=== PATIENT | male | born 1990 | race Caucasian/White ===

== ENCOUNTER 2016-05-08 22:23 | Emergency (ER) | payer SELFPAY ==
[~2016-05-08] VITALS: Ht 177.8 cm; Wt 86.2 kg
[2016-05-08 22:32] VITALS: BP 130/80
--- NOTE | 2016-05-08 23:14 | Emergency Room Report ---
History of Present Illness General Chief Complaint: Behavioral Complaint Source: Patient, EMS Present Illness HPI Is a 26-year-old male with unknown medical problem. He does have a psychiatric history but unknown diagnosis. He does have a psychiatrist. Was brought in by police and EMS has a 5150. 911 was called because he was yelling and running in out of the street. He was witnessed jumping in and out of other people yard , kicking chest pain. He was witnessed to be banging his head against the wall. Denies any of this. Denies suicidal thought homicidal thought. Police placed him on a 5150 is a danger to self. Denies any alcohol drugs. He refuse to answer the other question. He's not cooperative. There was a question of GHB use because he would fall asleep easily. Allergies: Coded Allergies: No Known Allergies (Unverified , 05/08/16) Patient History Past Medical History: unable to obtain Past Surgical History: unable to obtain Family History: unable to obtain Social History: unable to obtain Immunizations: other Reviewed Nursing Documentation: PMH: Agreed, PSxH: Agreed Review of Systems ENT: Denies: sore throat Cardiovascular: Denies: chest pain, palpitations Gastrointestinal/Abdominal: Denies: diarrhea, nausea, vomiting Musculoskeletal: Denies: back problems Skin: Denies: rash Neurological: Denies: [facility], seizures All Other Systems: negative except mentioned in HPI Physical Exam Vital Signs Date Time Temp Pulse Resp B/P Pulse Ox O2 Delivery O2 Flow Rate FiO2 05/08/16 22:24 98.1 96 16 130/80 98 Room Air vitals normal Sp02 EP Interpretation: reviewed, normal General Appearance: alert/responsive, no apparent distress, non-toxic, other - Combative, not cooperative Head: normocephalic, other - 1 cm laceration to the bridge of the nose. Edema to that area. No deformity. Eyes: PERRL, EOMI ENT: oropharynx normal Neck: supple/symm/no masses Respiratory: effort normal, no rhonchi, no wheezing Cardiovascular: no murmur, gallop, rub Gastrointestinal: non-tender, no mass, non-distended, no rebound/guarding, normal bowel sounds Neurologic: oriented x3, sensory intact, motor strength/tone normal Skin: no rash, normal palpation Medical Decision Making Diagnostic Impression: Primary Impression: Behavioral disorder Additional Impressions: Head injury, acute Qualified Codes: S09.90XA - Unspecified injury of head, initial encounter Laceration of nose without complication Qualified Codes: S01.21XA - Laceration without foreign body of nose, initial encounter Psychosis Qualified Codes: 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 He admits to using a derivative of GHB. This is causing his psychosis. He is better now. No suicidal thought homicidal thought. He is on Adderall which may account for his positive for amphetamine.Better now. He is placed in a 5150 by police. He is medically clear for psychiatric evaluation. No evidence of intracranial injury. Laceration of the nose is superficial and does not need suturing. Lab Results Impression labs unremarkable CT/MRI/US Diagnostic Results CT/MRI/US Diagnostic Results : Imaging Test Ordered: CT head Impression Neg per radiologist. Last Vital Signs Date Time Temp Pulse Resp B/P Pulse Ox O2 Delivery O2 Flow Rate FiO2 05/08/16 22:32 98.1 81 16 130/80 98 Room Air Status: improved Disposition: XFER TO PSYCH HOSP/UNIT Condition: Stable MARCUS ESTEBAN M.D. May 08, 2016 23:14
[2016-05-08 23:38] LABS: BASOPHILS % (AUTO) 0.7 % (0.0-2.0); EOSINOPHILS % (AUTO) 0.2 % (0.0-3.0); LYMPHOCYTES % (AUTO) 19.5 % (20.0-45.0); MEAN CORPUSCULAR HGB CONC 34.1 G/DL (32.0-36.0); MEAN CORPUSCULAR VOLUME 97 FL (80-99); MEAN PLATELET VOLUME 7.9 FL (6.5-10.1); MONOCYTES % (AUTO) 4.8 % (1.0-10.0); NEUTROPHILS % (AUTO) 74.8 % (45.0-75.0); PLATELET COUNT 103 K/UL (150-450); RED BLOOD COUNT 4.77 M/UL (4.70-6.10); RED CELL DISTRIBUTION WIDTH 11.9 % (11.6-14.8); WHITE BLOOD COUNT 9.3 K/UL (4.8-10.8)
[2016-05-08 23:46] LABS: APPEARANCE,URINE CLEAR; KETONES,URINE NEGATIVE (NEGATIVE); LEUKOCYTE ESTERASE ,URINE NEGATIVE (NEGATIVE); NITRITE,URINE NEGATIVE (NEGATIVE); PH,URINE 6.5 (4.5-8.0); PROTEIN,URINE NEGATIVE (NEGATIVE); UROBILINOGEN,URINE 1 MG/DL (0.0-1.0)
[2016-05-08 23:53] LABS: ACETAMINOPHEN < 10 ug/mL (10-30); ALANINE AMINOTRANSFERASE 15 U/L (3-41); ALBUMIN/GLOBULIN RATIO 1.6 (1.0-2.7); ALCOHOL < 10 mg/dL; ANION GAP 16 (5-15); ASPARTATE AMINO TRANSFERASE 29 U/L (5-40); CALCIUM 9.4 mg/dL (8.6-10.2); CARBON DIOXIDE 27 mEQ/L (20-30); CHLORIDE 101 mEQ/L (98-107); CREATININE 0.9 mg/dL (0.7-1.2); GLOMERULAR FILTRATION RATE > 60 mL/min (>60); HEMOLYSIS 126; POTASSIUM 4.8 mEQ/L (3.4-4.9); SODIUM 144 mEQ/L (135-145); TOTAL PROTEIN 7.1 g/dL (6.6-8.7)
[2016-05-09 00:57] VITALS: BP 112/71
[2016-05-09] MEDS ORDERED: UNOBMED (01:46)
[2016-05-09 03:30] VITALS: BP 127/77
[2016-05-09 04:00] VITALS: BP 103/44
[2016-05-09 07:00] VITALS: BP 119/65
[2016-05-09 07:48] VITALS: BP 119/65
--- NOTE | 2016-05-09 08:50 | Diagnostic Imaging Report ---
Indications: ,, Pain Technique: Continuous helical CT imaging of the brain was performed with automatic exposure control on a Siemens sensation [address] scanner. Axial and coronal images were reconstructed at 5 mm slice thickness and interval. CTDI volume(s): 70 mGy Total DLP: 1445 mGy-cm Findings: Comparison: None. Intracranial anatomy is unremarkable. No evidence of mass or hemorrhage, other attenuation abnormality, mass effect, midline shift, hydrocephalus or increased intracranial pressure. Bone window images are unremarkable. Visualized paranasal sinuses and mastoid air cells are clear. IMPRESSION: Negative noncontrast CT scan of the brain -no evidence of acute injury. This correlates with [facility] preliminary report. The CT scanner at [facility] is accredited by the [employer] and the scans are performed using protocols designed to limit radiation exposure to as low as reasonably achievable to attain images of sufficient resolution adequate for diagnostic evaluation.
== END 2016-05-09 07:52 ==
LOC: EDBD 22:23 → EMR 22:40
DX: F91.9 Conduct disorder, unspecified (principal); S09.90XA Unspecified injury of head, initial encounter; S01.21XA Laceration without foreign body of nose, initial encounter; F23 Brief psychotic disorder; X58.XXXA Exposure to other specified factors, initial encounter; Y93.9 Activity, unspecified; Y92.9 Unspecified place or not applicable; F19.10 Other psychoactive substance abuse, uncomplicated
CPT/HCPCS: 36415; 70450; 80053; 80300; 81003; 85025; 99285; G0480; 80329